=== PATIENT | male | born 1940 | race Caucasian/White ===

== ENCOUNTER 2016-10-20 17:20 | Observation (INO) | payer MEDICAID, MEDICARE, OTHER ==
[~2016-10-20] VITALS: Ht 175.3 cm; Wt 99.2 kg
[~2016-10-20 17:20] MED LIST: ASPI-628 PO; ATOR80TA77 PO; DOCU250C2 PO; LISI-610 PO; METO25TA6 PO; NIAC10002 PO; OMEP-113 PO
[2016-10-20 17:23] VITALS: BP 159/88; PULSE 72; RESP 16; O2SAT 100
[2016-10-20 17:45] LABS: BASOPHILS % (AUTO) 1.3 % (0-3); EOSINOPHILS % (AUTO) 3.1 % (0-5); MONOCYTES % (AUTO) 10.7 % (4-12); Mean Corpuscular Hemoglobin 30.6 pg (27.0-35.0); Mean Corpuscular Volume 89.8 fL (81-100); NEUTROPHILS % (AUTO) 46.5 % (40-74); Platelet Count 289 bil/L (150-400)
--- NOTE | 2016-10-20 18:07 | ED.REPORT ---
HPI-Dyspnea / Wheezing Date of Service Oct 20, 2016 ED Provider: Bryan Hancock DO Patient is a 76 year old male with a history of ND, hypertension and CABG who presents to the ED complaining of progressively worsening dyspnea with exertion onset 3 weeks ago. Associated symptoms include chest pain with exertion. He states that he was concerned because he feels it in his "bronchial tubes" and is concerned about his lungs and heart. Patient reports taking daily ASA. Nursing Notes Stated Complaint: SHORT OF BREATH Chief Complaint: Respiratory Complaints Nursing Notes Reviewed: Yes Allergies: Coded Allergies: No Known Allergies (Verified , 10/20/16) Scheduled Aspirin (Aspirin) 81 Mg Tablet 81 MG PO HS Atorvastatin Calcium (Atorvastatin Calcium) 80 Mg Tablet 80 MG PO HS Cholecalciferol (Vitamin D3) (Vitamin D3) 1,000 Unit Tab.chew 1,000 UNIT PO HS Docusate Sodium (Docusate Sodium) 250 Mg Capsule 250 MG PO HS Lisinopril (Zestril) 10 Mg Tablet 10 MG PO HS Metoprolol Tartrate (Metoprolol Tartrate) 25 Mg Tablet 25 MG PO HS Omeprazole (Omeprazole) 20 Mg Capsule.dr 20 MG PO HS General Time Seen by MD: 18:06 Chief Complaint Shortness of breath Hx Obtained From: Patient Arrived By: Walk-in Sudden in Onset?: No Onset Occurred: More than a week ago... (3 weeks) Location: : Substernal Quality: Burning, Pressure Severity: Current: No pain currently Severity: Maximum: Moderate Recent Healthcare: No recent hospitalization, Recent doctor visit Past Medical History Past Medical History ND Reports: Hypertension Past Surgical History CABGx4 Smoking History Former Smoker Social History Alcohol Use: "Social" Other Social History: Good social support Ambulatory Status Independent Review of Systems Constitutional: Denies: Chills, Fever, Weakness - generalized Respiratory: Denies: Hemoptysis, Non-productive cough, Shortness of breath, Wheezing Cardiovascular: Reports: Chest pain, Dyspnea on exertion Musculoskeletal: Denies: Extremity pain Skin: Denies Diaphoresis, Denies Itching, Denies Rash Complete sys rev & neg: except as marked. Physical Exam Initial Vital Signs Vital Signs (First) Date Time Temp Pulse Resp B/P Pulse Ox O2 Delivery O2 Flow Rate FiO2 10/20/16 17:23 36.5 72 16 159/88 100 Room Air Initial VS: Reviewed General/Constitutional: Awake, Alert, No acute distress Appearance / Presentation: Positive: Obese Neck: Atraumatic, Supple, Full range of motion Respiratory / Chest: Atraumatic, Breath sounds NL, Breath sounds = bilat, No respiratory distress Cardiovascular: Heart rate NL, Regular rhythm, Heart sounds NL Abdomen: Atraumatic, Soft, Non-tender Lower Extremity / Pelvis / MS: Atraumatic, No edema Skin: Atraumatic, Color NL, No rash, Warm, Dry Neurologic: Oriented X3, Speech NL, No motor deficits, No sensory deficits Head / Eyes: Atraumatic, Normocephalic, PERRL, EOMI Psychiatric: Affect NL, Mood NL Interpretation & Diagnostics Lab Results Interpretation Result Diagram: 10/20/16 1730 10/20/16 1730 Test 10/20/16 17:30 White Blood Count 7.1th/mm3 (3.8-10.1) Red Blood Count 5.00mil/mm3 (4.40-5.80) Hemoglobin 15.3g/dL (13.8-17.2) Hematocrit 44.9% (41.0-50.0) Mean Corpuscular Volume 89.8fL (81-100) Mean Corpuscular Hemoglobin 30.6pg (27.0-35.0) Mean Corpuscular Hemoglobin Concent 34.1% (32.0-37.0) Red Cell Distribution Width 12.6% (12.3-15.4) Platelet Count 289bil/L (150-400) Neutrophils (%) (Auto) 46.5% (40-74) Lymphocytes (%) (Auto) 38.0% (14-46) Monocytes (%) (Auto) 10.7% (4-12) Eosinophils (%) (Auto) 3.1% (0-5) Basophils (%) (Auto) 1.3% (0-3) Prothrombin Time 10.4sec (8.1-12.5) Prothromb Time International Ratio 0.97ratio Sodium Level 136mEq/L (134-144) Potassium Level 4.3mEq/L (3.5-5.2) Chloride Level 99mEq/L (97-108) Carbon Dioxide Level 22mmol/L (18-29) Blood Urea Nitrogen 23mg/dL (8-27) Creatinine 0.88mg/dL (0.76-1.27) Estimat Glomerular Filtration Rate 89mL/min (>59) Glucose Level 94mg/dL (60-99) Calcium Level 9.7mg/dL (8.5-10.1) Magnesium Level 2.2mg/dL (1.6-2.6) Total Bilirubin 0.5mg/dL (0.0-1.2) Aspartate Amino Transf (AST/SGOT) 25U/L (0-50) Alanine Aminotransferase (ALT/SGPT) 24U/L (0-44) Alkaline Phosphatase 94U/L (25-160) Total Creatine Kinase 69U/L (21-232) Troponin T < 0.010ug/L (0.0-0.011) Pro-B-Type Natriuretic Peptide 292.4pg/mL (0-486) Total Protein 7.5g/dL (6.4-8.4) Albumin 4.3g/dL (3.4-5.0) ECG Interpretation ECG Interpretation: normal 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 No acute cardiopulmonary disease. Dictated by: Nnamdi Calderon M.D. on 10/20/2016 at 18:41 Approved by: Nnamdi Calderon M.D. on 10/20/2016 at 18:42 View: Portable, 1 view Interpretation / Wet Read by: Interpret - Radiologist Re-Eval/Medical Decision Med Decision/Clinical Course Mr. Mehta symptoms are worrisome for unstable angina. He has known coronary artery disease and over the last 2 weeks he has had progressively worsening exercise tolerance with dyspnea on exertion and burning type chest pain. He was referred to was from the urgent care. He is followed at the [facility] and I called the [facility]. They have no beds and cannot expedite follow-up. I think it is prudent that he be admitted at least overnight and have serial enzymes and a stress test. Re-Evaluation/Progress : Time of Eval: 18:34 Re-Evaluation/Progress Note: Discussed X-ray and plan for admit. Patient understands and agrees to plan. All questions were addressed. Consultation : Referral / Consult Name: Rose Marie Whittaker DO Consulted With: Hospitalist Call Returned at: 19:17 Front Office Specialist: Agrees with eval, Agrees with plan, Accepts admit Counseled Regarding: Diagnosis, Lab results, Need for admission Discharge & Departure Impression: Primary Impression: Unstable angina Disposition: ADMITTED TO HOSPITAL Discharge Condition All VS Reviewed: Yes Condition: Stable [facility] Mack Attestation Portions of this note were transcribed by Natasha Lee. I, Dr. Hacnock personally performed the history, physical exam and medical decision-making; I reviewed and confirmed the accuracy of the information in the transcribed note. Signed by: Mack Rogers, 10/20/16 and 1820 Bryan Hancock DO Oct 20, 2016 18:07 Mayi Lee Oct 20, 2016 18:12
[2016-10-20 18:25] LABS: TROPONIN T < 0.010 ug/L (0.0-0.011)
[2016-10-20] MEDS ORDERED: Nitroglycerin 2% 1 Gm Ointment TOPICAL ONE (18:35)
--- NOTE | 2016-10-20 18:43 | DRSVH ---
PROCEDURE: X-RAY CHEST ONE VIEW, PORTABLE ([id number]) INDICATIONS: sob TECHNIQUE: One view of the chest was acquired. COMPARISON: 08/26/14. FINDINGS: Surgical changes and devices: Postsurgical changes are redemonstrated in the mediastinum. Lungs and pleura: No pleural effusions or pneumothorax. Lungs are clear. Mediastinum: Mediastinal contours appear unchanged. Heart size is at the upper limits of normal. Bones and chest wall: No suspicious bony lesions. Overlying soft tissues appear unremarkable. IMPRESSION: 1. No acute cardiopulmonary disease. Dictated by: Nnamdi Calderon M.D. on 10/20/2016 at 18:41 Approved by: Nnamdi Calderon M.D. on 10/20/2016 at 18:42
[2016-10-20 18:47] VITALS: BP 149/84; PULSE 79; RESP 20; O2SAT 94
[2016-10-20] MEDS ORDERED: CHOL10008 PO (19:28)
[2016-10-20] MEDS ORDERED: OMEP20CA11 PO (19:28)
[2016-10-20] MEDS ORDERED: ASPI-973 PO (19:29)
--- NOTE | 2016-10-20 19:34 | PCM.HPMED ---
Subjective Date of Service Oct 20, 2016 Primary Provider: Admitting Physician: Primary Care Physician: [facility] Attending Physician: Admit Status: From the Emergency Department Chief Complaint: 3 weeks history of dyspnea and chest pain with exertion. History of Present Illness: Alcon is a pleasant 76 Y/O M with a past medical history to include GERD, hypertension and PR status post four-vessel CABG who presented to the ED with three-weeks of progressively worsening dyspnea, shortness of breath, and burning chest tightness with exertion.Associated symptoms include a tightness in the trachea "lung tubes " that feels like sandpaper exertion. He states it all began about 3 weeks ago when he was walking 10 blocks or so up until going to the grocery store. He states when he was walking on the way back downhill it did not bother him. Ever since that time every time he walks briskly it causes him to have this chest tightness and burning sensation in his chest. He states even waking up go to the bathroom at night causes him to have experienced this tightness in his chest. Other things aggravated include moving boxes. He states that the tightness lasts until he sits down to rest and relax. The chest pain then goes away rather quickly. He denies that it feels like his normal acid reflux. He denies that it is anything similar to when he had his heart attack, in that when he had his heart attack he experienced dizziness. Patient denies fever, chills, sweats, nausea, vomiting, radiating pain to the neck shoulder or back, dizziness, abdominal pain, back pain, diarrhea. The patient does suffer from chronic constipation but had a bowel movement yesterday. Patient reports taking daily ASA, and is compliant on his lisinopril, atorvastatin, and omeprazole. He should states he takes only 1 metoprolol tartrate 25 mg daily although he is prescribed to take 2 daily. CXR: Showed no acute cardiopulmonary disease. EKG, normal sinus rhythm 65, rate of normal ST segments, no T-wave abnormalities , Q waves present in leads 2, 3 and aVF consistent with old inferior infarct, unchanged from prior EKG In the ED: She was given 162 mg of aspirin and 1/2 inches Nitro-Bid. Vital signs: Temperature 36.5, pulse 72, respiratory rate 16, blood pressure 159 /88, pulse ox 100% on room air. Hemogram showed: Completely normal Chemistry panel showed: Completely normal Troponin less than 0.010 Pro BNP 292.4 The patient was admitted to the hospital for continued observation, acute coronary syndrome rule out given his presentation of exertional chest pain and dyspnea as well as being high-risk with his history of CABG 4 vessels. Review of Systems: A comprehensive review of systems was conducted and was negative except as mentioned in history of present illness. Allergies Coded Allergies: No Known Allergies (Verified , 10/20/16) Home Medications Aspirin (Aspir 81) 81 Mg Tablet. 81 MG PO DAILY Atorvastatin Calcium (Atorvastatin Calcium) 80 Mg Tablet 80 MG PO HS Lisinopril (Zestril) 10 Mg Tablet 10 MG PO HS Metoprolol Tartrate (Metoprolol Tartrate) 25 Mg Tablet 25 MG PO BID, but patient states he only takes 1 tablet per day Niacin (Niacin) 1,000 Mg Tablet.er 1,000 MG PO HS Omeprazole Magnesium (Omeprazole) 20 Mg Capsule. 20 MG PO BID PRN Docusate Sodium (Docusate Sodium) 250 Mg Capsule 250 MG PO BID PRN PRN For Constipation PMH PR Hypertension Coronary artery disease Benign prostatic hyperplasia GERD Surgical History CABGx4 TURP Cholecystectomy Appendectomy Family History Father of emphysema Mother with history of stroke Maternal grandfather with history of stroke Social History Hx Alcohol Use: Yes ("very little") Hx Substance Use: No Hx Tobacco Use: No Smoking Status: Former Smoker Living Arrangement: with Family (visit home with his Melida [phone]) Exam Vital Signs Vital Sign - Last Date Time Temp Pulse Resp B/P Pulse Ox O2 Delivery O2 Flow Rate FiO2 10/20/16 18:47 79 20 149/84 94 Room Air 10/20/16 17:23 36.5 Exam General: Patient is alert oriented 3, in no acute distress, speaking in full sentences, jovial, not currently expressing chest tightness or chest pain, not appearing short of breath HEENT: NC/AT, eyes, anisocoria with right pupil larger than left, EOMI, conjunctiva noninjected, neck, soft supple, no adenopathy, no JVD, no masses, no bruits, no thyromegaly, throat mucous membranes pink and moist, no erythema, no exudates, no tonsillar swelling, no uvular deviation. Upper dentures Lungs: CTAB all lua, no wheezes, no rhonchi, no crackles, no adventitious lung sounds, no use of accessory muscles of respiration, good air movement, good respiratory effort. Heart: Regular rate and rhythm, grade 3/6 systolic murmur does not radiate to the neck, no rub, no click, no distant heart sounds, well-healed old sternal scar Abdomen: Soft, nontender, nondistended, bowel sounds active, no rebound, no guarding, midline scar below the level of the umbilicus from prior appendectomy Genitourinary: No CVA tenderness, no suprapubic tenderness, no Law catheter, Extremities: Muscle strength, 5 out of 5 upper/lower extremity and symmetric laterally, reflexes 2 out of 4 upper/lower extremity and symmetric bilaterally, pulses equal and symmetric upper/lower extremity including radial and dorsalis pedis, no edema Neurologic: Grossly neurologically intact, beginning in full sentences, no focal neurological signs. Skin: Biliary refill less than 2 seconds, skin turgor is good, skin is warm and dry, no rash Psychiatric: Mood is cheerful and mood and affect are congruent and appropriate. Lab and Diagnostics Result Diagram: 10/20/16172910/20/161729 X-Rays, CTs and MRIs Date of Service: 10/20/16 172 PROCEDURE: X-RAY CHEST ONE VIEW, PORTABLE INDICATIONS: sob TECHNIQUE: One view of the chest was acquired. COMPARISON: 08/26/14. FINDINGS: Surgical changes and devices: Postsurgical changes are redemonstrated in the mediastinum. Lungs and pleura: No pleural effusions or pneumothorax. Lungs are clear. Mediastinum: Mediastinal contours appear unchanged. Heart size is at the upper limits of normal. Bones and chest wall: No suspicious bony lesions. Overlying soft tissues appear unremarkable. IMPRESSION: 1. No acute cardiopulmonary disease. Dictated by: Nnamdi Calderon M.D. on 10/20/2016 at 18:41 Approved by: Nnamdi Calderon M.D. on 10/20/2016 at 18:42 Assessment & Plan Patient is a pleasant 76-year-old male with history of hypertension, and PR and now status post 4 vessel CABG who presented with exertional dyspnea and chest pain for 3 weeks. Patient was admitted for observation and further medical management as well as acute coronary syndrome ruled out. #chest pain. Present on Admission, active -Vital signs: Temperature 36.5, pulse 72, respiratory rate 16, blood pressure 159/88, pulse ox 100% on room air. -In the ED: She was given 162 mg of aspirin and 1/2 inches Nitro-Bid. -EKG, normal sinus rhythm 65, rate of normal ST segments, no T-wave abnormalities, Q waves present in leads 2, 3 and aVF consistent with old inferior infarct, unchanged from prior EKG -Troponin T negative and a 0.010, -CXR showed no acute cardio pulmonary disease -Hemogram negative -Chemistry panel negative -BNP 292 -Trending troponin -Coronary Stress testing to be done in a.m. -O2 Sats keep > 94% -Holding IV fluids, patient able to tolerate by mouth -Continue Atorvastatin 80 Mg Tablet PO HS -Continue Lisinopril 10 Mg Tablet PO HS -Continue Metoprolol Tartrate 25 MG PO HS -Continue Niacin 1,000 MG PO HS -Morphine for pain control -Nitro SL, Nitro Hitchcock, Nitro Paste (PRN) -Aspirin 81 mg daily -Continuous Cardiac Monitoring with remote telemetry -Labs (Lipid Panel, CBC, CMP, PT/PTT/INR) -Heart Healthy Diet # Hypertension -Continue Metoprolol Tartrate 25 MG PO HS # GERD - Continue omeprazole Disposition: Admitted for observation, and for complexity of medical workup, continued medical treatment, and to rule out acute coronary syndrome. CODE STATUS: Full code PCP: [facility] DVT PE prophylaxis: SCD's Contact: Jennifer [phone] VTE Prophylaxis: SCDs Resuscitation Status: CPR: Attempt Resuscitation Attending Statement The patient was seen and examined together with house staff on 10/20/2016 and I agree with the history, exam and plan as outlined in the note above. Jason King DO Oct 20, 2016 19:34 Rose Marie Whittaker DO Oct 21, 2016 07:01 -Morphine for pain control -Nitro SL, Nitro Hitchcock, Nitro Paste (PRN) -Aspirin 81 mg daily -Continuous Cardiac Monitoring with remote telemetry -Labs (Lipid Panel, CBC, CMP, PT/PTT/INR) -Heart Healthy Diet # Hypertension Disposition: Admitted to in patient service with expected length of stay greater than 2 days, secondary to severity of presenting symptoms, treatment plan, complexity of clinical work up, and risk of adverse events. CODE STATUS: Full code PCP: DVT PE prophylaxis: SCD's/Enoxiparin/SubQ heparin Q8H Contact: Jason King DO Oct 20, 2016 19:34
[2016-10-20 19:46] VITALS: BP 141/78; PULSE 74; RESP 18; O2SAT 96
[2016-10-20] MEDS ORDERED: Senna-Docusate 8.6-50 mg Tablet PO PRN (19:55)
[2016-10-20] MEDS ORDERED: Polyethylene Glycol (PEG) 17 Gm Powder PO PRN (19:55)
[2016-10-20] MEDS ORDERED: Ondansetron 2 mg/mL 2 mL Inj IVPUSH PRN (19:55)
[2016-10-20] MEDS ORDERED: Alum-Mag Hydrox-Simeth 30 mL Suspension PO PRN (19:55)
[2016-10-20 20:08] LABS: INR 0.97 ratio
[2016-10-20 20:18] LABS: Creatine Kinase 69 U/L (21-232); Magnesium 2.2 mg/dL (1.6-2.6)
[2016-10-20 20:28] VITALS: BP 153/75; PULSE 68; RESP 16; O2SAT 98
[2016-10-20 23:03] VITALS: BP 133/76; PULSE 74; RESP 16; O2SAT 93
[2016-10-21] VITALS (7 sets, daily range): BP systolic 111–133; BP diastolic 72–82; PULSE 63–90; RESP 11–18; O2SAT 94–97
[2016-10-21] MEDS: Sodium Chloride LOK Flush 10 mL Syringe IVFLUSH SCH ×3 (03:02→16:34)
[2016-10-21 03:03] LABS: EOSINOPHILS % (AUTO) 4.4 % (0-5); MONOCYTES % (AUTO) 7.4 % (4-12); Mean Corpuscular Hemoglobin 30.4 pg (27.0-35.0); Mean Corpuscular Volume 89.3 fL (81-100); NEUTROPHILS % (AUTO) 50.3 % (40-74); Platelet Count 247 bil/L (150-400)
[2016-10-21 03:37] LABS: Creatine Kinase 66 U/L (21-232)
--- NOTE | 2016-10-21 07:05 | PCM.PNMED ---
Subjective Date of Service Oct 21, 2016 Jem Rondon is a pleasant 76 year old gentleman with a past medical history to include GERD, hypertension and ID status post four-vessel CABG (2010) who presented to the ED with three-weeks of progressively worsening dyspnea, shortness of breath, and burning chest tightness with exertion. The patient was admitted to the hospital for continued observation, acute coronary syndrome rule out given his presentation of exertional chest pain and dyspnea as well as being high-risk with his history of CABG 4 vessels.He has had negative troponins x3 and will have nuclear medicine stress test on 10/22/16. Overnight Events: None Today, Alexis is feeling well, resting in bed comfortably and in no acute distress. He is not having any chest pain or shortness of breath as he was prior. He is able to get up and walk to the bathroom without any difficulty and has been urinating. He has not yet passed a bowel movement, but mentions he is usually constipated at home and uses docusate for relief. Exam Vital Signs Vital Sign - Last Date Time Temp Pulse Resp B/P Pulse Ox O2 Delivery O2 Flow Rate FiO2 10/21/16 05:12 76 10/21/16 02:56 36.7 16 114/73 96 Room Air Intake and Output 10/20/16 10/20/16 10/21/16 Cumulative From/Thru 15:00 23:00 07:00 10/20/16 17:23 - 10/21/16 06:37 Intake Total 300 ml 300 ml Output Total 300 ml 300 ml Balance 0 ml 0 ml Intake Oral 300 ml 300 ml Output Urine Total 300 ml 300 ml Exam General: Patient is alert oriented 3, in no acute distress, speaking in full sentences HEENT: Normocephalic, Atraumatic, sclera anicteric, moist conjunctiva Lungs: Clear to auscultation bilaterally no wheezes, no rhonchi, no crackles, no use of accessory muscles of respiration, good air movement, good respiratory effort. Heart: Regular rate and rhythm, grade 3/6 systolic murmur does not radiate to the neck, well-healed old sternal scar Abdomen: Soft, nontender, nondistended, bowel sounds active, midline scar below the level of the umbilicus from prior appendectomy Extremities: No edema bilaterally, distal pulses strong Neurologic: Grossly neurologically intact, beginning in full sentences, no focal neurological signs. Skin: Skin is warm and dry, no rash Psychiatric: Appropriate mood and affect Lab and Diagnostics Item Value Date Time White Blood Count 7.3 th/mm3 10/21/16254 White Blood Count 7.1 th/mm3 10/20/16 173 Hemoglobin 15.3 g/dL 10/20/16 173 Hemoglobin 14.2 g/dL 10/21/16 025 Hematocrit 44.9 % 10/20/16 173 Hematocrit 41.7 % 10/21/16 025 Platelet Count 289 guilherme/L 10/20/16 173 Platelet Count 247 guilherme/L 10/21/16 025 Sodium Level 140 mEq/L 10/21/16 025 Potassium Level 4.1 mEq/L 10/21/16 025 Blood Urea Nitrogen 22 mg/dL 10/21/16 025 Creatinine 0.85 mg/dL 10/21/16254 Glucose Level 103 mg/dL H 10/21/16 025 Triglycerides Level 168 mg/dL H 10/21/16 025 Cholesterol Level 126 mg/dL 10/21/16 025 LDL Cholesterol, Calculated 67.400 mg/dL 10/21/16 025 VLDL Cholesterol 33.600 mg/dL 10/21/16 025 HDL Cholesterol 25 mg/dL 10/21/16 025 Thyroid Stimulating Hormone (TSH) 2.280 uIU/mL 10/20/161729 Prothrombin Time 10.4 sec 10/20/16 173 Prothromb Time International Ratio 0.97 ratio 10/20/16 173 Result Diagram: 10/21/1625410/21/16254 X-Rays, CTs and MRIs Date of Service: 10/20/161727 PROCEDURE: X-RAY CHEST ONE VIEW, PORTABLE INDICATIONS: sob TECHNIQUE: One view of the chest was acquired. COMPARISON: 08/26/14. FINDINGS: Surgical changes and devices: Postsurgical changes are redemonstrated in the mediastinum. Lungs and pleura: No pleural effusions or pneumothorax. Lungs are clear. Mediastinum: Mediastinal contours appear unchanged. Heart size is at the upper limits of normal. Bones and chest wall: No suspicious bony lesions. Overlying soft tissues appear unremarkable. IMPRESSION: 1. No acute cardiopulmonary disease. Dictated by: Nnamdi Calderon M.D. on 10/20/2016 at 18:41 Approved by: Nnamdi Calderon M.D. on 10/20/2016 at 18:42 12-lead ECG normal sinus rhythm 65, rate of normal ST segments, no T-wave abnormalities, Q waves present in leads 2, 3 and aVF consistent with old inferior infarct, unchanged from prior EKG Assessment & Plan Alcon is a pleasant 76 year old gentleman with a past medical history to include GERD, hypertension and ID status post four-vessel CABG (2010) who presented to the ED with three-weeks of progressively worsening dyspnea, shortness of breath, and burning chest tightness with exertion. The patient was admitted to the hospital for continued observation, acute coronary syndrome rule out given his presentation of exertional chest pain and dyspnea as well as being high-risk with his history of CABG 4 vessels.He has had negative troponins x3 and will have nuclear medicine stress test on 10/22/16. Acute Coronary Syndrome rule out. Present on Admission, active - Troponin T negative and a 0.010 x2, CXR showed no acute cardio pulmonary disease, EKG, normal sinus rhythm 65, rate of normal ST segments, no T-wave abnormalities, Q waves present in leads 2, 3 and aVF consistent with old inferior infarct, unchanged from prior EKG. - Continue Atorvastatin 80 Mg Tablet PO HS, Lisinopril 10 Mg Tablet PO HS, Metoprolol Tartrate 25 MG PO HS - Morphine for pain control, Nitro SL, Nitro Hawks, Nitro Paste (PRN), Aspirin 81 mg daily - Continuous Cardiac Monitoring with remote telemetry - Cardiac stress test scheduled for 10/22/16 - NPO after midnight Hypertension -Continue Metoprolol Tartrate 25 MG PO HS GERD - Continue omeprazole Disposition: Likely discharge tomorrow pending no concerning findings on cardiac stress test 10/22/16. Pain Evaluation: Adequate Pain Control VTE Prophylaxis: SCDs Resuscitation Status: CPR: Attempt Resuscitation Attending Statement The patient was seen and examined together with Dr. Abel on 10/21/2016 and I agree with the history, exam and plan as outlined in the note above. . Eyad Abel DO Oct 21, 2016 07:04 Mario Olivares MD Oct 22, 2016 16:02 continued medical treatment, and to rule out acute coronary syndrome. CODE STATUS: Full code PCP: [facility] DVT PE prophylaxis: SCD's Contact: Jennifer [phone] VTE Prophylaxis: SCDs Resuscitation Status: CPR: Attempt Resuscitation Eyad Abel DO Oct 21, 2016 07:04 -In the ED: She was given 162 mg of aspirin and 1/2 inches Nitro-Bid. -EKG, normal sinus rhythm 65, rate of normal ST segments, no T-wave abnormalities, Q waves present in leads 2, 3 and aVF consistent with old inferior infarct, unchanged from prior EKG -Troponin T negative and a 0.010, -CXR showed no acute cardio pulmonary disease -Hemogram negative -Chemistry panel negative -BNP 292 -Trending troponin -Coronary Stress testing to be done in a.m. -O2 Sats keep > 94% -Holding IV fluids, patient able to tolerate by mouth -Continue Atorvastatin 80 Mg Tablet PO HS -Continue Lisinopril 10 Mg Tablet PO HS -Continue Metoprolol Tartrate 25 MG PO HS -Continue Niacin 1,000 MG PO HS -Morphine for pain control -Nitro SL, Nitro Hawks, Nitro Paste (PRN) -Aspirin 81 mg daily -Continuous Cardiac Monitoring with remote telemetry -Labs (Lipid Panel, CBC, CMP, PT/PTT/INR) -Heart Healthy Diet Hypertension -Continue Metoprolol Tartrate 25 MG PO HS GERD - Continue omeprazole Disposition: Admitted for observation, and for complexity of medical workup, continued medical treatment, and to rule out acute coronary syndrome. CODE STATUS: Full code PCP: [facility] DVT PE prophylaxis: SCD's Contact: Dinakieran [phone] VTE Prophylaxis: SCDs Resuscitation Status: CPR: Attempt Resuscitation Eyad Abel DO Oct 21, 2016 07:04
--- NOTE | 2016-10-21 11:00 | NUR ---
Social Work: Multidisciplinary Rounds/Initial Assessment D: Per EMR review, pt is a 76 year old male admitted for unstable angina. Pt has VA benefits and is opting to use this coverage for hospitalization. Pt also has Medicare with no supplement or LTC insurance. PCP is through the [facility]. NOK is Kate Jimenes, s/o, . Advanced directives completed- information requested for chart. Readmit score is low, 1. TRUCKER HAND met with the patient at bedside. Sw role explained, Discharge planning checklist and contact information provided. Pt lives with his s/o in a four-flex in [place]. Pt has 2 steps to enter his two story home and reports no issues navigating stairs. Pt uses no DME, has been completely I with all ADLs and self care. Pt continues to drive and is a/o x4. Pt has never had HH or skilled rehab and anticipates discharging home once medically ready. Pt discussed in am rounds with MD team. Pt is awaiting a stress test which cannot be completed until Sunday. MD and team identify no concerns about pt's capacity for self-care and identify no discharge needs at this time. A: Pt who is I at baseline. P: Anticipate pt to discharge home via POV and no sw needs; TRUCKER HAND to continue to follow to assess for needs should they arise. MP Irvin Addendum: 10/21/16 at 1104 by DONTAE ROSALES SS Amended: Links added.
--- NOTE | 2016-10-21 18:06 | NUR ---
Transport to Stress test/ambulation Pt. went to cardiac stress test today at 1145 in stable condition. Returned at 1300 and is doing well. Per tele, pt. was having PVCs every third beat continuously. Pt. asymptomatic with stable vitals. notified and is aware. Per MD instruction, pt. ambulated in the [place] with assistance. He walked 3 laps and did not develop any symptoms. Per MD, pt. ok to be off strict bedrest.
[2016-10-21] MEDS ORDERED: Pantoprazole 20 mg ER24 Tablet PO SCH (21:00)
[2016-10-22 02:01] VITALS: BP 109/54; PULSE 67; RESP 16; O2SAT 97
[2016-10-22] MEDS: Sodium Chloride LOK Flush 10 mL Syringe IVFLUSH SCH ×2 (04:04→07:26)
[2016-10-22 05:06] VITALS: PULSE 67
--- NOTE | 2016-10-22 07:06 | NUR ---
NPO/Pain-Free Pt was NPO at midnight in preparation for NM stress test today. Pt has been ambulating in the room and has had no c/o chest pain and has not required nitro or morphine.
[2016-10-22 08:09] VITALS: PULSE 80
--- NOTE | 2016-10-22 09:00 | NUR ---
Activity Patient ambulating in room independently, tolerating well. Denies pain and SOB while ambulating and at rest.
--- NOTE | 2016-10-22 09:50 | DRSVH ---
PROCEDURE: 2 DAY STRESS TEST Rest and exercise myocardial perfusion SPECT with gated imaging and ejection fraction RADIOPHARMACEUTICAL: 21.9 mCi Tc-99m tetrafosmin IV at rest and 21.3 mCi Tc-99m tetrafosmin IV at pe ak exercise. [id number] was performed. INDICATIONS: Unstable Angina. TECHNIQUE: Radiopharmaceutical was injected at peak stress test, and also at rest. SPECT images wer e obtained. SPECT myocardial perfusion images were displayed in short axis, horizontal long axis, an d vertical long axis views. Gated images were reviewed using AutoQUANT software. COMPARISON: None. CARDIAC STRESS: A standard Ernie treadmill exercise tolerance test was performed by the patient under the supervision of an attending staff. The patient exercised for 4 minutes and 0 seconds reaching 7 METs; functiona l aerobic impairment (MATI) is +15%. Hemodynamic data: There is normal blood pressure and heart rate response to exercise stress. Patien t achieved 100% of maximum predicted heart rate at peak exercise. Symptoms: Patient denied chest pain during exercise. EKG: Downsloping 1mm ST depressions in the lateral leads during 3-4 minute of recovery that graduall y resolves. Frequent PVCs during rest and recovery. FINDINGS: Raw data: There is good myocardial labeling by radiotracer. No significant motion artifacts. Left ventricle function: Gated images obtained only during rest and demonstrate global hypokinesis. No transient ischemic dilation. The left ventricle resting end-diastolic volume is 92 mL. Left dank tricle rest ejection fraction is 49%; normal values are above 45%. Myocardial perfusion: Mildly intense defect in the proximal to mid inferior wall and mid lateral татьяна t worsens significantly in intensity during stress imaging and extends to the entire lateral wall and inferior wall, suggesting prior mild infarction with significant raeann-infarct ischemia. Summed stre ss score is 16 and summed difference score is 11. IMPRESSION: Abnormal study consistent with prior small infarct and significant raeann-infarct ischemia 1) Abnormal perfusion images consistent with prior small infarct and large raeann-infarct ischemia. Mi ldly intense defect in the proximal to mid inferior wall and mid lateral that worsens significantly i n intensity during stress imaging and extends to the entire lateral wall and the entire inferior wall , suggesting prior mild infarction with significant raeann-infarct ischemia. Summed stress score is 16 and summed difference score is 11. 2) Normal left ventricular size and borderline reduced function (EF 49%). 3) ECG suggestive of ischemia. Downsloping 1mm ST depressions in the lateral leads during 3-4 minute of recovery that gradually resolves. Frequent PVCs during rest and recovery. 4) No angina during stress test. 5) Mildly reduced exercise tolerance (7 METs, MATI +15%). Target heart rate achieved. Appropriate he modynamic response to exercise. 6) No prior nuclear stress test available for comparison. Dictated by: Daniele Staples M.D. on 10/22/2016 at 9:31 Approved by: Daniele Staples M.D. on 10/22/2016 at 9:48
[2016-10-22 11:50] VITALS: BP 111/71; PULSE 92; RESP 16; O2SAT 95
--- NOTE | 2016-10-22 13:03 | PCM.DIMED ---
AUDRA GONZALES DO 10/22/16 1303: Discharge Instructions Date of Service Oct 22, 2016 Dates of Hospitalization Oct 20, 2016 at 19:39 Discharge Diagnosis Discharge Diagnosis Abnormal Nuclear Stress Test, Inferior and Lateral reversible perfusion defect, Acute Coronary Syndrome rule out Hypertension GERD Medication Instructions Additional med instructions Take sublingual nitrogen as needed for exertional chest pain not relieved by rest. Take as directed. Continue other home medications. Diet Discharge Diet: Heart Healthy Activity Discharge Activity: Limited until seen by PCP, Other Call your provider Call your provider for: Fever or Chills, Shortness of breath, Chest pain, Excessive diarrhea, Weakness (unilateral) Patient Instructions Follow-up plan Call Dr. Staples's office on Sunday to verify follow up cardiology appointment. Follow-up Provider: Daniele Staples MD Follow-up with PCP in: 1 week (october 26 at 1130. ) [facility] Follow-up in: 2 weeks (1-2 weeks for follow up on hospital stay. ) Mario Olivares MD 10/22/16 1603: Discharge Instructions Attending's Statement The patient was seen and examined together with Dr. Gonzales on 10/22/2016 and I agree with the history, exam and plan as outlined in the note above. . AUDRA GONZALES DO Oct 22, 2016 13:03 Mario Olivares MD Oct 22, 2016 16:03
[2016-10-22] MEDS ORDERED: NITR0.4T SL (13:05)
--- NOTE | 2016-10-22 13:25 | NUR ---
Discharge Discharge instructions given to patient along with prescription. Patient verbalized all understanding and denied any further questions. IV D/C'd, intact. Awaiting for ride in room.
--- NOTE | 2016-10-22 14:16 | NUR ---
Social Work: Multidisciplinary Rounds/Discharge D: Pt discussed in am rounds pt is medically stable for discharge home. No needs anticipated and no concerns for capacity for self care. Sw status remains unchanged. Anticipate d/c home. Pt has active discharge orders home. EXTENSION WORKER met with the patient at bedside to confirm discharge plan. Pt has no concerns about his discharge and states his s/o is coming to pick him up. EMR reviewed; pt ambulating I during admit. No needs identified at this time. A: Pt who is I at baseline. P: Pt to discharge home via POV and no sw needs at this time. MP Irvin
--- NOTE | 2016-10-23 16:22 | PCM.DC.MED ---
Discharge Summary Date of Service Oct 23, 2016 Dates of Hospitalization Date of Hospital Admission Oct 20, 2016 at 19:39 Date of Discharge: Oct 22, 2016 Providers: Admitting Physician: Rose Marie Whittaker DO Primary Care Physician: [facility] Attending Physician: Mario Olivares MD Diagnosis at Time of Discharge Diagnosis at Time of Discharge Abnormal Nuclear Stress Test, Inferior and Lateral reversible perfusion defect, Acute Coronary Syndrome rule out Hypertension GERD Procedures XRay, CTs & MRIs Date of Service: 10/20/16 1728 PROCEDURE: X-RAY CHEST ONE VIEW, PORTABLE INDICATIONS: sob TECHNIQUE: One view of the chest was acquired. COMPARISON: 08/26/14. FINDINGS: Surgical changes and devices: Postsurgical changes are redemonstrated in the mediastinum. Lungs and pleura: No pleural effusions or pneumothorax. Lungs are clear. Mediastinum: Mediastinal contours appear unchanged. Heart size is at the upper limits of normal. Bones and chest wall: No suspicious bony lesions. Overlying soft tissues appear unremarkable. IMPRESSION: 1. No acute cardiopulmonary disease. Dictated by: Nnamdi Calderon M.D. on 10/20/2016 at 18:41 Approved by: Nnamdi Calderon M.D. on 10/20/2016 at 18:42 ECG 12 Lead normal sinus rhythm 65, rate of normal ST segments, no T-wave abnormalities, Q waves present in leads 2, 3 and aVF consistent with old inferior infarct, unchanged from prior EKG Brief History Alcon is a pleasant 76 Y/O M with a past medical history to include GERD, hypertension and AK status post four-vessel CABG who presented to the ED with three-weeks of progressively worsening dyspnea, shortness of breath, and burning chest tightness with exertion.Associated symptoms include a tightness in the trachea "lung tubes " that feels like sandpaper exertion. He states it all began about 3 weeks ago when he was walking 10 blocks or so up until going to the grocery store. He states when he was walking on the way back downhill it did not bother him. Ever since that time every time he walks briskly it causes him to have this chest tightness and burning sensation in his chest. He states even waking up go to the bathroom at night causes him to have experienced this tightness in his chest. Other things aggravated include moving boxes. He states that the tightness lasts until he sits down to rest and relax. The chest pain then goes away rather quickly. He denies that it feels like his normal acid reflux. He denies that it is anything similar to when he had his heart attack, in that when he had his heart attack he experienced dizziness. Patient denies fever, chills, sweats, nausea, vomiting, radiating pain to the neck shoulder or back, dizziness, abdominal pain, back pain, diarrhea. The patient does suffer from chronic constipation but had a bowel movement yesterday. Patient reports taking daily ASA, and is compliant on his lisinopril, atorvastatin, and omeprazole. He should states he takes only 1 metoprolol tartrate 25 mg daily although he is prescribed to take 2 daily. CXR: Showed no acute cardiopulmonary disease. EKG, normal sinus rhythm 65, rate of normal ST segments, no T-wave abnormalities , Q waves present in leads 2, 3 and aVF consistent with old inferior infarct, unchanged from prior EKG In the ED: She was given 162 mg of aspirin and 1/2 inches Nitro-Bid. Vital signs: Temperature 36.5, pulse 72, respiratory rate 16, blood pressure 159 /88, pulse ox 100% on room air. Hemogram showed: Completely normal Chemistry panel showed: Completely normal Troponin less than 0.010 Pro BNP 292.4 The patient was admitted to the hospital for continued observation, acute coronary syndrome rule out given his presentation of exertional chest pain and dyspnea as well as being high-risk with his history of CABG 4 vessels. His underwent a stress test with the following findings: IMPRESSION: Abnormal study consistent with prior small infarct and significant raeann-infarct ischemia 1) Abnormal perfusion images consistent with prior small infarct and large raeann- infarct ischemia. Mildly intense defect in the proximal to mid inferior wall and mid lateral that worsens significantly in intensity during stress imaging and extends to the entire lateral wall and the entire inferior wall, suggesting prior mild infarction with significant raeann-infarct ischemia. Summed stress score is 16 and summed difference score is 11. 2) Normal left ventricular size and borderline reduced function (EF 49%). 3) ECG suggestive of ischemia. Downsloping 1mm ST depressions in the lateral leads during 3-4 minute of recovery that gradually resolves. Frequent PVCs during rest and recovery. 4) No angina during stress test. 5) Mildly reduced exercise tolerance (7 METs, MATI +15%). Target heart rate achieved. Appropriate hemodynamic response to exercise. 6) No prior nuclear stress test available for comparison. Patient was advised of a small reversible defect on cardiac stress test. He elected to use medically optimized therapy at this time and was discharged with sublingual nitrogen and advised to follow up closely with primary care physician and cardiology. Hospital Course Alcon is a pleasant 76 year old gentleman with a past medical history to include GERD, hypertension and AK status post four-vessel CABG (2010) who presented to the ED with three-weeks of progressively worsening dyspnea, shortness of breath, and burning chest tightness with exertion. The patient was admitted to the hospital for continued observation, acute coronary syndrome rule out given his presentation of exertional chest pain and dyspnea as well as being high-risk with his history of CABG 4 vessels.He has had negative troponins x3 and had a nuclear medicine stress test on 10/22/16 with reversible defect. Acute Coronary Syndrome rule out. Present on Admission, active - Troponin T negative and a 0.010 x2, CXR showed no acute cardio pulmonary disease, EKG, normal sinus rhythm 65, rate of normal ST segments, no T-wave abnormalities, Q waves present in leads 2, 3 and aVF consistent with old inferior infarct, unchanged from prior EKG. - Continue Atorvastatin 80 Mg Tablet PO HS, Lisinopril 10 Mg Tablet PO HS, Metoprolol Tartrate 25 MG PO HS - Morphine for pain control, Nitro SL, Nitro Lima, Nitro Paste (PRN), Aspirin 81 mg daily - Continuous Cardiac Monitoring with remote telemetry - Cardiac stress test with reversible defect 10/22/16 Hypertension -Continue Metoprolol Tartrate 25 MG PO HS GERD - Continue omeprazole Disposition: Discharge today due to with medically optimized therapy after cardiac stress test 10/22/16 with reversible defect. PAtient elected to treat with medical therapy and will seek further interventional therapy if his symptoms worsen. Exam Vital Signs (Last) Date Time Temp Pulse Resp B/P Pulse Ox O2 Delivery O2 Flow Rate FiO2 10/22/16 11:50 36.7 92 16 111/71 95 Room Air Exam General: Patient is alert oriented 3, in no acute distress, speaking in full sentences HEENT: Normocephalic, Atraumatic, sclera anicteric, moist conjunctiva Lungs: Clear to auscultation bilaterally no wheezes, no rhonchi, no crackles, no use of accessory muscles of respiration, good air movement, good respiratory effort. Heart: Regular rate and rhythm, grade 3/6 systolic murmur does not radiate to the neck, well-healed old sternal scar Abdomen: Soft, nontender, nondistended, bowel sounds active, midline scar below the level of the umbilicus from prior appendectomy Extremities: No edema bilaterally, distal pulses strong Neurologic: Grossly neurologically intact, beginning in full sentences, no focal neurological signs. Skin: Skin is warm and dry, no rash Psychiatric: Appropriate mood and affect Test 10/20/16 17:30 10/20/16 19:50 10/21/16 02:55 10/21/16 11:21 Prothrombin Time 10.4sec (8.1-12.5) Prothromb Time International Ratio 0.97ratio Hemoglobin A1c 6.2% (4.8-5.6) Magnesium Level 2.2mg/dL (1.6-2.6) Total Bilirubin 0.5mg/dL (0.0-1.2) Aspartate Amino Transf (AST/SGOT) 25U/L (0-50) Alanine Aminotransferase (ALT/SGPT) 24U/L (0-44) Alkaline Phosphatase 94U/L (25-160) Pro-B-Type Natriuretic Peptide 292.4pg/mL (0-486) Total Protein 7.5g/dL (6.4-8.4) Albumin 4.3g/dL (3.4-5.0) Thyroid Stimulating Hormone (TSH) 2.280uIU/mL (0.450-4.500) Hold Urine Received (Received) White Blood Count 7.3th/mm3 (3.8-10.1) Red Blood Count 4.67mil/mm3 (4.40-5.80) Hemoglobin 14.2g/dL (13.8-17.2) Hematocrit 41.7% (41.0-50.0) Mean Corpuscular Volume 89.3fL (81-100) Mean Corpuscular Hemoglobin 30.4pg (27.0-35.0) Mean Corpuscular Hemoglobin Concent 34.1% (32.0-37.0) Red Cell Distribution Width 12.5% (12.3-15.4) Platelet Count 247bil/L (150-400) Neutrophils (%) (Auto) 50.3% (40-74) Lymphocytes (%) (Auto) 36.5% (14-46) Monocytes (%) (Auto) 7.4% (4-12) Eosinophils (%) (Auto) 4.4% (0-5) Basophils (%) (Auto) 1.0% (0-3) Sodium Level 140mEq/L (134-144) Potassium Level 4.1mEq/L (3.5-5.2) Chloride Level 103mEq/L (97-108) Carbon Dioxide Level 20mmol/L (18-29) Blood Urea Nitrogen 22mg/dL (8-27) Creatinine 0.85mg/dL (0.76-1.27) Estimat Glomerular Filtration Rate 93mL/min (>59) Glucose Level 103mg/dL (60-99) Calcium Level 9.0mg/dL (8.5-10.1) Total Creatine Kinase 66U/L (21-232) Creatine Kinase MB 2.0ng/mL (0.0-10.4) Creatine Kinase MB % % (0.0-5.0) Triglycerides Level 168mg/dL (0-149) Cholesterol Level 126mg/dL (100-199) LDL Cholesterol, Calculated 67.400mg/dL (0-99) VLDL Cholesterol 33.600mg/dL HDL Cholesterol 25mg/dL (>39) Cholesterol/HDL Ratio 5.04 (0.0-4.4) Troponin T 0.010ug/L (0.0-0.011) Discharge Medications Discharge Medications Aspirin (Aspirin) 81 Mg Tablet 81 MG PO HS (Reported) Atorvastatin Calcium (Atorvastatin Calcium) 80 Mg Tablet 80 MG PO HS (Reported) Cholecalciferol (Vitamin D3) (Vitamin D3) 1,000 Unit Tab.chew 1,000 UNIT PO HS ( Reported) Docusate Sodium (Docusate Sodium) 250 Mg Capsule 250 MG PO HS (Reported) Lisinopril (Zestril) 10 Mg Tablet 10 MG PO HS Prescribed by: ALEKSANDR LAWSON MD Metoprolol Tartrate (Metoprolol Tartrate) 25 Mg Tablet 25 MG PO HS (Reported) Omeprazole (Omeprazole) 20 Mg Capsule.dr 20 MG PO HS (Reported) As needed Nitroglycerin SL (Nitrostat) 0.4 Mg Tab.subl 0.4 MG SL Q5MIN PRN PRN For Chest Pain Prescribed by: AUDRA GONZALES, Additional med instructions Take sublingual nitrogen as needed for exertional chest pain not relieved by rest. Take as directed. Continue other home medications. Followup Plan Disposition: Home Follow-up plan Call Dr. Staples's office on Sunday to verify follow up cardiology appointment. Discharge Diet: Heart Healthy Discharge Activity: Limited until seen by PCP, Other Patient Instructions Continue home medications and add sublingual nitrogen as needed and as directed for exertional chest pain not relieved by rest. Follow-up Provider: Daniele Staples MD Follow-up with PCP in: 1 week (october 26 at 1130. ) Provider: [facility] Follow-up in: 2 weeks (1-2 weeks for follow up on hospital stay. ) Attending Statement The patient was seen and examined together with Dr. Gonzales on 10/22/2016 and I agree with the history, exam and plan as outlined in the note above. copies to: [facility]; Daniele Staples MD, COREY P DO Oct 23, 2016 16:13 Mario Olivares MD Oct 24, 2016 13:51
== END 2016-10-22 14:10 | disposition home or self-care (01) ==
LOC: SED 17:20 → PCC 19:39
PROVIDERS: ADMIT Internal Medicine; ATTEND Internal Medicine
DX: R94.31 Abnormal electrocardiogram [ECG] [EKG] (principal); R07.89 Other chest pain; R06.00 Dyspnea, unspecified; I10 Essential (primary) hypertension; K21.9 Gastro-esophageal reflux disease without esophagitis; I25.10 Atherosclerotic heart disease of native coronary artery without angina pectoris; I25.2 Old myocardial infarction; N40.0 Benign prostatic hyperplasia without lower urinary tract symptoms; Z95.1 Presence of aortocoronary bypass graft; Z87.891 Personal history of nicotine dependence; Z79.82 Long term (current) use of aspirin
CPT/HCPCS: 36415; 71010; 78452; 80048; 80053; 80061; 82550; 82553; 83036; 83735; 83880; 84443; 84484; 85025; 85610; 93005; 93017; 99285; A9502; G0378